=== PATIENT | female | born 1980 | race Caucasian/White ===

== ENCOUNTER 2016-11-12 12:48 | Inpatient (IN) | payer BC ==
[~2016-11-12] VITALS: Ht 172.7 cm; Wt 103.3 kg
[~2016-11-12 12:48] MED LIST: CEPHALEXIN500 M1 PO; IRON325 MG PO; MOTRIN 800800 MG/TAB PO; NATURAL IRON65 MG PO; PERCOCET 325 MG1 TA2 PO; PRENATAL1 TA7 PO; TUMS EXTRA STR750 MG PO
[2017-04-08] VITALS (33 sets, daily range): BP systolic 110–168; BP diastolic 59–102; PULSE 63–111; TEMP 97.8–98.6
[2017-04-08] MEDS ORDERED: ACTIGALL 300MG300 MG PO (07:32)
[2017-04-08 09:17] LABS: MEAN CELL VOLUME 92 fl (80.0-100.0); MEAN CORPUSCULAR HGB CONC 33 g/dl (33.0-37.0); MEAN PLATELET VOLUME 12.5 fl (7.4-10.4); PLATELET COUNT 268 K/mm3 (130-400); RED BLOOD COUNT 3.64 M/mm3 (4.10-5.30); REDCELL DISTRIBUTION WIDTH-CV 14.4 % (11.5-14.5); WHITE BLOOD COUNT 12.8 K/mm3 (4.8-10.8)
[2017-04-08 09:41] LABS: ADD PATHOLOGY DIFF REVIEW NO; HEMATOCRIT 33.6 % (37.0-47.0); HEMOGLOBIN 11.1 g/dl (12.5-16.0); MEAN CORPUSCULAR HEMOGLOBIN 30 pg (27.0-31.0)
[2017-04-08 09:45] LABS: BAND 5 % (0-10); EOSINOPHIL 1 % (0-4); METAMYELOCYTE 1 % (0-0); NEUTROPHILS 76 % (42.0-75.2); TOTAL CELLS COUNTED 100
[2017-04-08 09:46] LABS: PLATELET ESTIMATE NORMAL (NORMAL)
[2017-04-09 09:30] VITALS: BP 137/88; PULSE 78; TEMP 98
[2017-04-09] MEDS ORDERED: PERCOCET 325 MG1 TA2 PO (12:53)
[2017-04-09] MEDS ORDERED: IBU600 MG PO (12:53)
[2017-04-09 16:30] VITALS: BP 144/82; PULSE 84; TEMP 97.8
[2017-04-09 21:00] VITALS: BP 122/79; PULSE 77; TEMP 98.1
[2017-04-10 08:31] VITALS: BP 131/89; PULSE 87; TEMP 98.1
== END 2017-04-10 12:35 | disposition home or self-care (01) | DRG 775 ==
LOC: LDRO → LDR 04-08 06:09 → OB 04-08 06:56 → EDSTATUS 04-22 06:08 → LDRO 04-22 10:13
PROVIDERS: Obstetrics & Gynecology
PROC: 10E0XZZ Delivery of Products of Conception, External Approach (ICD-10-PCS; principal; 2017-04-08)
PROC: 0KQM0ZZ Repair Perineum Muscle, Open Approach (ICD-10-PCS; 2017-04-08)
PROC: 3E033VJ Introduction of Other Hormone into Peripheral Vein, Percutaneous Approach (ICD-10-PCS; 2017-04-08)
DX: O26.62 Liver and biliary tract disorders in childbirth (principal); K83.1 Obstruction of bile duct; O76 Abnormality in fetal heart rate and rhythm complicating labor and delivery; O69.81X0 Labor and delivery complicated by cord around neck, without compression, not applicable or unspecified; O70.1 Second degree perineal laceration during delivery; Z3A.38 38 weeks gestation of pregnancy; Z37.0 Single live birth
CPT/HCPCS: J2590; J2795; J7120

== ENCOUNTER 2016-11-29 20:15 | Emergency (ER) | payer BC ==
[~2016-11-29] VITALS: Ht 172.7 cm; Wt 100.0 kg
[2016-11-29 20:18] VITALS: TEMP 99.1
[2016-11-29 21:13] LABS: BASO # 0.1 (0.0-0.2); BASO % 0.4 % (0.0-2.0); EOS % 0.1 % (0-4.0); GRAN # 13.8 (1.4-6.5); GRAN % 86.8 % (42.2-75.2); HEMATOCRIT 36.5 % (37.0-47.0); HEMOGLOBIN 12.3 g/dl (12.5-16.0); LYMPH # 1.1 (1.2-3.4); LYMPH % 7.2 % (20.0-51.0); MEAN CELL VOLUME 93 fl (80.0-100.0); MEAN CORPUSCULAR HEMOGLOBIN 31 pg (27.0-31.0); MEAN CORPUSCULAR HGB CONC 34 g/dl (33.0-37.0); MEAN PLATELET VOLUME 10.2 fl (7.4-10.4); MONO # 0.8 (0.1-0.6); MONO % 4.9 % (1.7-9.3); PLATELET COUNT 321 K/mm3 (130-400); RED BLOOD COUNT 3.94 M/mm3 (4.10-5.30); REDCELL DISTRIBUTION WIDTH-CV 13.2 % (11.5-14.5); WHITE BLOOD COUNT 15.9 K/mm3 (4.8-10.8)
[2016-11-29 21:25] LABS: ADJUSTED CALCIUM 8.6 mg/dL (8.4-10.2); ALBUMIN 3.7 gm/dL (3.5-5.0); BILIRUBIN,TOTAL 0.7 mg/dL (0.0-1.0); C-REACTIVE PROTEIN 2.5 mg/dL (0.0-0.9); CALCIUM 8.4 mg/dL (8.4-10.2); CREATININE, serum 0.56 mg/dL (0.52-1.25); POTASSIUM 3.5 mmol/L (3.4-5.0); TOTAL PROTEIN 6.5 gm/dL (6.4-8.2)
[2016-11-29 21:37] LABS: INFLUENZA B NEGATIVE
[2016-11-29 21:59] LABS: PH 5 (5-8); URINE APPEARANCE Hazy; URINE BACTERIA Rare /hpf; URINE BILIRUBIN Negative (NEGATIVE); URINE BLOOD Negative (NEGATIVE); URINE COLOR Amber; URINE GLUCOSE Negative (NEGATIVE); URINE KETONE Trace (NEGATIVE)
[2016-11-29 22:44] VITALS: BP 148/71; PULSE 97
== END 2016-11-29 22:44 | disposition home or self-care (01) ==
LOC: COL.ER 20:15
PROVIDERS: Emergency Medicine
DX: O99.89 Other specified diseases and conditions complicating pregnancy, childbirth and the puerperium (principal); R50.9 Fever, unspecified; R00.0 Tachycardia, unspecified; Z3A.19 19 weeks gestation of pregnancy
CPT/HCPCS: J7030

== ENCOUNTER → 2018-03-19 | Outpatient (CLI) | payer BC ==
[~2018-03-19] VITALS: Ht 172.7 cm; Wt 88.6 kg
[~2018-03-19] MED LIST changes: +ACTIGALL 300MG300 MG PO; +IBU600 MG PO
[2018-03-19 17:08] VITALS: BP 147/82; PULSE 83; TEMP 98
== END ==
LOC: COL.ER 17:06 → COL.RAD 17:07 → COL.ER 17:07 → COL.RAD 17:07 → EDSTATUS 17:37
DX: R79.89 Other specified abnormal findings of blood chemistry (principal); Z91.81 History of falling

== ENCOUNTER → 2018-03-19 | Outpatient (CLI) | payer BC ==
[2018-03-19 16:23] LABS: BASO # 0.1 (0.0-0.2); BASO % 1.6 % (0.0-2.0); EOS # 0.1 (0.0-0.7); EOS % 1.2 % (0-4.0); GRAN # 3.1 (1.4-6.5); GRAN % 53.1 % (42.2-75.2); HEMATOCRIT 42.2 % (37.0-47.0); HEMOGLOBIN 13.6 g/dl (12.5-16.0); LYMPH # 2.1 (1.2-3.4); LYMPH % 36.3 % (20.0-51.0); MEAN CELL VOLUME 94 fl (80.0-100.0); MEAN CORPUSCULAR HEMOGLOBIN 30 pg (27.0-31.0); MEAN CORPUSCULAR HGB CONC 32 g/dl (33.0-37.0); MEAN PLATELET VOLUME 10.5 fl (7.4-10.4); MONO # 0.4 (0.1-0.6); MONO % 7.6 % (1.7-9.3); PLATELET COUNT 357 K/mm3 (130-400); RED BLOOD COUNT 4.48 M/mm3 (4.10-5.30); REDCELL DISTRIBUTION WIDTH-CV 13.1 % (11.5-14.5)
[2018-03-19 16:35] LABS: ALBUMIN 4.3 gm/dL (3.5-5.0); BILIRUBIN,TOTAL 0.5 mg/dL (0.0-1.0); CALCIUM 9.2 mg/dL (8.4-10.2); CREATININE, serum 0.57 mg/dL (0.52-1.25); POTASSIUM 4.2 mmol/L (3.4-5.0); TOTAL PROTEIN 7.2 gm/dL (6.4-8.2)
[2018-03-19 17:05] LABS: TSH w REFLEX 0.803 uIU/mL (0.465-4.680)
== END ==
LOC: COL.LAB 11:02
PROVIDERS: Family Medicine
DX: Z13.220 Encounter for screening for lipoid disorders (principal); Z13.29 Encounter for screening for other suspected endocrine disorder; T14.8XXA Other injury of unspecified body region, initial encounter; M79.89 Other specified soft tissue disorders; D64.9 Anemia, unspecified

== ENCOUNTER → 2018-05-07 | Outpatient (CLI) | payer BC ==
[~2018-05-07] VITALS: Ht 172.7 cm; Wt 39.5 kg
[2018-05-07 09:59] VITALS: BP 139/88; PULSE 89
== END ==
LOC: COL.RAD 04-22 13:00
DX: M79.662 Pain in left lower leg (principal)
CPT/HCPCS: Q9967

== ENCOUNTER → 2020-11-28 | Outpatient (CLI) | payer BC | LOC: MC.RAD 08:05 | DX: Z12.31 Encounter for screening mammogram for malignant neoplasm of breast (principal); N64.89 Other specified disorders of breast ==

== ENCOUNTER → 2020-12-04 | Outpatient (CLI) | payer BC | LOC: MC.RAD 12:41 | DX: N64.89 Other specified disorders of breast (principal) ==

== ENCOUNTER → 2021-06-07 | Outpatient (CLI) | payer BC | LOC: MC.RAD 09:47 | DX: N63.10 Unspecified lump in the right breast, unspecified quadrant (principal) ==

== ENCOUNTER 2022-05-08 19:59 | Emergency (ER) | payer BC ==
[~2022-05-08] VITALS: Ht 172.7 cm; Wt 100.0 kg
[2022-05-08 20:06] VITALS: TEMP 98.8
[2022-05-08 20:36] LABS: BASO # 0.1 K/mm3 (0.0-0.2); BASO % 0.9 % (0.0-2.0); EOS # 0.3 K/mm3 (0.0-0.7); EOS % 3.5 % (0.0-4.0); GRAN # 6.2 K/mm3 (1.4-6.5); HEMOGLOBIN 14.5 g/dl (12.5-16.0); LYMPH # 2.2 K/mm3 (1.2-3.4); LYMPH % 22.2 % (20.0-51.0); MEAN CELL VOLUME 93 fl (80.0-100.0); MEAN CORPUSCULAR HEMOGLOBIN 32 pg (27-31); MEAN CORPUSCULAR HGB CONC 34 g/dl (33.0-37.0); PLATELET COUNT 303 K/mm3 (130-400); RED BLOOD COUNT 4.61 M/mm3 (4.10-5.30); REDCELL DISTRIBUTION WIDTH-CV 13.2 % (11.5-14.5)
[2022-05-08 20:55] LABS: BILIRUBIN,TOTAL 0.4 mg/dL (0.2-1.2); CREATININE, serum 0.82 mg/dL (0.57-1.11); POTASSIUM 3.9 mmol/L (3.5-4.5); TOTAL PROTEIN 7.1 gm/dL (6.2-8.1)
[2022-05-08 21:01] LABS: TROPONIN-I 0.02 ng/mL (0.00-0.033)
[2022-05-08 23:00] VITALS: BP 112/91; PULSE 82
== END 2022-05-08 23:05 | disposition home or self-care (01) ==
LOC: COL.ER 19:59
PROVIDERS: Family Medicine
DX: R07.89 Other chest pain (principal); Z86.79 Personal history of other diseases of the circulatory system

== ENCOUNTER 2023-10-09 16:40 | Emergency (ER) | payer BC ==
[~2023-10-09] VITALS: Ht 172.7 cm; Wt 92.7 kg
[2023-10-09 19:24] LABS: BASO # 0.1 K/mm3 (0.0-0.2); BASO % 1.2 % (0.0-2.0); EOS # 0.1 K/mm3 (0.0-0.7); EOS % 0.5 % (0.0-4.0); GRAN # 6.9 K/mm3 (1.4-6.5); GRAN % 66.9 % (42.2-75.2); HEMATOCRIT 47.2 % (37.0-47.0); HEMOGLOBIN 15.7 g/dl (12.5-16.0); LYMPH # 2.5 K/mm3 (1.2-3.4); LYMPH % 24.1 % (20.0-51.0); MEAN CELL VOLUME 94 fl (80.0-100.0); MEAN CORPUSCULAR HEMOGLOBIN 31 pg (27-31); MEAN CORPUSCULAR HGB CONC 33 g/dl (33.0-37.0); MONO # 0.7 K/mm3 (0.1-0.6); PLATELET COUNT 295 K/mm3 (130-400); RED BLOOD COUNT 5.02 M/mm3 (4.10-5.30); REDCELL DISTRIBUTION WIDTH-CV 12.3 % (11.5-14.5)
[2023-10-09 19:38] LABS: ALANINE AMINOTRANSFERASE 15 U/L (0-55); ALBUMIN 4.6 gm/dL (3.5-5.0); ALKALINE PHOSPHATASE 48 U/L (40-150); ANION GAP 13 mmol/L (7-16); AST,SGOT 21 U/L (5-34); BILIRUBIN,TOTAL 0.4 mg/dL (0.2-1.2); BLOOD UREA NITROGEN 12 mg/dL (7-19); CALCIUM 10.2 mg/dL (8.4-10.2); CARBON DIOXIDE 22 mmol/L (22-29); CHLORIDE 105 mmol/L (98-107); CREATININE, serum 0.84 mg/dL (0.57-1.11); GLUCOSE 98 mg/dL (70-99); LIPASE 22 U/L (8-78); SODIUM 140 mmol/L (136-145); TOTAL PROTEIN 7.8 gm/dL (6.2-8.1)
[2023-10-09 19:44] LABS: TROPONIN-I < 0.010 ng/mL (0.00-0.033)
[2023-10-09 20:41] VITALS: BP 139/97; PULSE 82; TEMP 98.3
== END 2023-10-09 20:41 | disposition home or self-care (01) ==
LOC: COL.ER 16:40
PROVIDERS: Nurse Practitioner Primary Care
DX: I10 Essential (primary) hypertension (principal); Z98.890 Other specified postprocedural states; Z91.148 Patient's other noncompliance with medication regimen for other reason